=== PATIENT | female | born 1990 | race American Indian/Alaskan Native ===

== ENCOUNTER 2017-07-10 07:35 | Day surgery (SDC) | payer MEDICAID ==
[2017-07-10] MEDS ORDERED: PERCOCET 5/325 PO PRN (09:00)
[2017-07-10] MEDS ORDERED: DILAUDID IV PRN (09:00)
[2017-07-10] MEDS ORDERED: ZOFRAN IV PRN (09:00)
[2017-07-10] MEDS ORDERED: PEPCID PO NR (09:00)
[2017-07-10] MEDS ORDERED: LACTATED RINGERS 1,000 ML IV SCH (09:00)
[2017-07-10] MEDS ORDERED: ANCEF/STERILE WATER 2 GM/20 ML IV NR (09:00)
[2017-07-10] MEDS ORDERED: VERSED IV NR (09:00)
[2017-07-10 09:09] LABS: Hematocrit 40.3 % (30.3-42.9); Hemoglobin 13.2 gm/dl (10.1-14.3)
--- NOTE | 2017-07-10 09:14 | Short Stay Summary ---
Short Stay Documentation Date of service: 07/10/17 Narrative H&P: Pt is a 27yo BF G0 LMP - months ago due to OCP's, presents for surgical evaluation of an abnormal Pap. 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 She is therefore scheduled for a LEEP. - History Principal diagnosis: Cervical dysplasia H&P: obtained from office Past Medical History: other (Bipolar disorder; Schizophrenia; Substance abuse) Past Surgical History: No surgical history Social history: no significant social history, single - Allergies and Medications Current Medications: Allergies No Known Allergies Allergy (Verified 07/10/17 08:13) Home Medications Medication Instructions Recorded Confirmed Last Taken Type Benztropine [Cogentin] 2 mg PO QHS 07/10/17 07/10/17 07/09/17 History Ibuprofen 800 mg PO BID PRN 07/10/17 07/10/17 06/10/17 History Metformin HCl 500 mg PO BID 07/10/17 07/10/17 07/09/17 History Norethindrone [Jencycla] 0.35 mg PO QDAY 07/10/17 07/10/17 07/10/17 History Topiramate [Topamax] 200 mg PO QHS 07/10/17 07/10/17 07/09/17 History Triamcinolone 0.1% [Kenalog] 1 applic TP BID PRN 07/10/17 07/10/17 Unknown History cloNIDine [Catapres] 0.1 mg PO QHS 07/10/17 07/10/17 07/09/17 History risperiDONE [RisperDAL] 3 mg PO QHS 07/10/17 07/10/17 07/09/17 History traZODone [Desyrel] 100 mg PO QHS 07/10/17 07/10/17 07/09/17 History Active Medications Cefazolin Sodium (Ancef/Sterile Water 2 Gm/20 Ml) 2 gm IV PREOP NR Famotidine (Pepcid) 20 mg PO PREOP NR Stop: 07/10/17 21:00 Hydromorphone HCl (Dilaudid) 0.5 mg IV Q10MIN PRN PRN Reason: Pain , Severe (7-10) Lactated Ringer's (Lactated Ringers) 1,000 mls @ 75 mls/hr IV DIRECT MELINA Midazolam HCl (Versed) 2 mg IV PREOP NR Stop: 07/10/17 23:59 Ondansetron HCl (Zofran) 4 mg IV ONCE PRN PRN Reason: Nausea And Vomiting Oxycodone/Acetaminophen (Percocet 5/325) 1 tab PO ONCE PRN PRN Reason: Pain, Moderate (4-6) - Physical exam General appearance: no acute distress Integumentary: no rash HEENT: Atraumatic Lungs: Clear to auscultation Breasts: deferred Heart: Regular rate Gastrointestinal: normal Female Genitourinary: deferred Rectal Exam: deferred Extremities: no ischemia, No edema Neurological: Normal gait, Normal speech - Brief post op/procedure progress note Date of procedure: 07/10/17 Pre-op diagnosis: Cervical dysplasia Post-op diagnosis: same Procedure: Loop Electrocautery Excision Procedure. Anesthesia: MAC Findings: Normal uterus. Grossly normal appearing cervix. Surgeon: LIZZY JACK Estimated blood loss: none Pathology: list (Cone shaped portion of cervix tagged at 12 O'clock) Specimen disposition: to lab Condition: stable - Hospital course Hospital course: Unremarkable. - Disposition Condition at discharge: Good Disposition: DC- TO HOME OR SELFCARE - Discharge Diagnoses (1) Cervical dysplasia Status: Resolved Short Stay Discharge Plan Activity: no restrictions Diet: regular Follow up with: LIZZY JACK MD [Staff Physician] - 14 Days Prescriptions: Ibuprofen [Motrin] 800 mg PO Q8HR PRN #20 tablet PRN Reason: Pain, Moderate (4-6)
--- NOTE | 2017-07-10 09:16 | Anesthesia Day of Surgery ---
Anesthesia Day of Surgery - Day of Surgery Patient Examined: Yes Patient H&P Reviewed: Yes Patient is NPO: Yes
--- NOTE | 2017-07-10 09:16 | Anesthesia Consultation ---
Anesthesia Consult and Med Hx Date of service: 07/10/17 - Airway Anesthetic Teeth Evaluation: Good ROM Head & Neck: Adequate Mental/Hyoid Distance: Adequate Mallampati Class: Class II Intubation Access Assessment: Probably Good - Pulmonary Exam CTA: Yes - Pre-Operative Health Status ASA Pre-Surgery Classification: ASA2 Proposed Anesthetic Plan: General - Pulmonary Hx Smoking: Yes - Central Nervous System Hx Psychiatric Problems: Yes - Endocrine Hx Non-Insulin Dependent Diabetes: Yes (Bipolar, schizophrenia) - Other Systems Hx Alcohol Use: Yes (past hx) Hx Substance Use: Yes (past hx) Hx Cancer: No Hx Obesity: Yes
[2017-07-10] MEDS ORDERED: ACETIC ACID 3% SOLN TP ONE (09:43)
[2017-07-10] MEDS ORDERED: LUGOL'S SOLUTION 5% TP ONE (09:43)
[2017-07-10] MEDS ORDERED: SILVER NITRATE TP ONE (09:43)
[2017-07-10] MEDS ORDERED: XYLOCAINE 1% 20 mL ONE (09:43)
[2017-07-10] MEDS ORDERED: MONSEL'S TP ONE ×2 (09:43→10:27)
[2017-07-10] MEDS ORDERED: DIPRIVAN 10 MG/ML IV ONE (09:46)
[2017-07-10] MEDS ORDERED: DILAUDID ONE (09:46)
[2017-07-10] MEDS ORDERED: XYLOCAINE MPF 2% ONE (09:48)
[2017-07-10] MEDS ORDERED: ANCEF/STERILE WATER 2 GM/20 ML 2 GM/20 ML SYRINGE IV NR (10:00)
[2017-07-10] MEDS ORDERED: DECADRON ONE (10:09)
[2017-07-10] MEDS ORDERED: ZOFRAN ONE (10:09)
[2017-07-10] MEDS ORDERED: NACL 0.9% IR ONE (10:14)
--- NOTE | 2017-07-10 10:38 | Operative Report ---
Operative Report Operative Report: Date of procedure: 07/10/2017 Pre-operative diagnosis: Cervical dysplasia Post-operative diagnosis: Same Procedure name(s): Loop electrocautery excision procedure Surgeon: Yunior Lovell MD Technology Coordinator: None Anesthesia: Gen. mask EBL: Minimal Findings: Normal uterus with grossly normal-appearing cervix Procedure: After the patient was correctly identified, she was prepped and draped in the usual sterile fashion and placed in the dorsal lithotomy position. First the bladder was emptied using a straight catheter, and the speculum was placed in the vaginal vault. Visualization of the cervix found a normal-appearing cervix. A 15 mm loop was used to remove a cone shaped portion of the cervix, which was tagged at 12:00 and sent to pathology. A small endocervical portion was also removed and sent to pathology. Monsel solution was applied to the excision site and excellent hemostasis was assured. All instruments removed from the vagina, the patient tolerated the procedure well and was transported to recovery room in stable condition.
[2017-07-10] MEDS ORDERED: MOTRIN PO SCH (12:18)
[2017-07-10 13:11] VITALS: BP 114/77
== END 2017-07-10 12:33 | disposition home or self-care (01) ==
LOC: OR 07:35
PROVIDERS: ATTEND Obstetrics & Gynecology
DX: N87.9 Dysplasia of cervix uteri, unspecified (principal); F31.9 Bipolar disorder, unspecified; E11.9 Type 2 diabetes mellitus without complications; F17.200 Nicotine dependence, unspecified, uncomplicated; E66.9 Obesity, unspecified; Z68.30 Body mass index [BMI] 30.0-30.9, adult; Z79.899 Other long term (current) drug therapy
CPT/HCPCS: 36415; 57522; 81025; 82962; 85014; 85018; 88305; 88307; J0690; J1100; J1170; J2250; J2405; J2704; J7120